=== PATIENT | male | born 1995 ===

== ENCOUNTER 2019-11-02 09:59 | Emergency (ER) | payer BC ==
[2019-11-02 10:15] VITALS: BP 127/50; PULSE 86; TEMP 98.4; BMI 30.5
[2019-11-02] MEDS ORDERED: IBUPROFEN 600 MG TABLET (FP) PO ONE ×2 (11:05→11:09)
--- NOTE | 2019-11-02 12:07 | PDOC ---
History of Present Illness - General Chief Complaint: Sore Throat Stated Complaint: SORE THROAT Time Seen by Provider: 11/02/19 10:49 History Source: Patient Exam Limitations: No Limitations Past History - Travel Traveled outside of the country in the last 30 days: No Close contact w/someone who was outside of country & ill: No - Past Medical History Allergies/Adverse Reactions: Allergies Allergy/AdvReac Type Severity Reaction Status Date / Time No Known Allergies Allergy Verified 11/02/19 10:04 Home Medications: Ambulatory Orders Amoxicillin - [Amoxicillin 500mg Capsule -] 500 mg PO BID #14 capsule 11/02/19 Amoxicillin - [Amoxicillin 500mg Capsule -] 500 mg PO BID #14 capsule 11/02/19 Ibuprofen 600 mg PO Q6H #30 tablet 11/02/19 Ibuprofen 600 mg PO Q6H #30 tablet 11/02/19 COPD: No - Psycho Social/Smoking Cessation Hx Smoking History: Never smoked Information on smoking cessation initiated: No Hx Alcohol Use: No Drug/Substance Use Hx: No Review of Systems - Review of Systems Able to Perform ROS?: Yes Comments:: 11/02/19 14:44 CONSTITUTIONAL: Absent: fever, chills, diaphoresis, generalized weakness, malaise, loss of appetite HEENT: Present: Sore throat, difficulty swallowing. Absent: rhinorrhea, nasal congestion, throat swelling, mouth swelling, ear pain, eye pain, visual Changes CARDIOVASCULAR: Absent: chest pain, loss of consciousness, palpitations, irregular heart rate, peripheral edema RESPIRATORY: Absent: cough, shortness of breath, dyspnea with exertion, orthopnea, wheezing, stridor, hemoptysis SKIN: Absent: rash, itching, pallor NEUROLOGIC: Absent: headache, focal weakness or paresthesias, dizziness, unsteady gait, seizure, mental status changes, bladder or bowel incontinence PSYCHIATRIC: Absent: anxiety, depression, suicidal or homicidal ideation, hallucinations. Is the patient limited [place] proficient: No *Physical Exam - Vital Signs Last Vital Signs Temp Pulse Resp BP Pulse Ox 98.4 F 86 17 127/50 L 100 11/02/19 10:05 11/02/19 10:05 11/02/19 10:05 11/02/19 10:05 11/02/19 10:05 - Physical Exam 11/02/19 14:44 GENERAL: The patient is awake, alert, and fully oriented, in no acute distress. HEAD: Normal with no signs of trauma. EYES: Pupils equal, round and reactive to light, extraocular movements intact, sclera anicteric, conjunctiva clear. HEENT: No nasal congestion or rhinorrhea. No sinus Tenderness. Mucous membranes are moist. (+) tonsillar erythema, exudate and edema. Uvula is midline. No TM bulging, dullness or erythema EXTREMITIES: Normal range of motion, no edema. NEUROLOGICAL: Normal speech, normal gait. PSYCH: Normal mood, normal affect. SKIN: Warm, Dry, normal turgor, no rashes or lesions noted. ED Treatment Course - Medications Given in the ED: ED Medications Discontinued Medications Generic Name Dose Route Start Last Admin Trade Name Freq PRN Reason Stop Dose Admin Ibuprofen 600 mg 11/02/19 11:05 11/02/19 11:08 Motrin - PO 11/02/19 11:06 600 mg ONCE ONE Administration Medical Decision Making - Medical Decision Making 11/02/19 14:45 The patient is a 24-year-old male with no past medical history who presents to the ER today for 2 days of sore throat. He states that he has difficulty swallowing however he is able to swallow his own secretions. He notes that the pain got worse this morning and he had white patches in the back of his throat so he came to the ER for evaluation. Denies fevers, chills, cough, nausea, vomiting or diarrhea. A/P: Strep pharyngitis On exam throat is erythematous with exudate and 2+ edema of the tonsils. Uvula is midline. Pt able to swallow own secretions Rapid strep is positive Discharge home with antibiotics and primary care follow-up I discussed the physical exam findings, ancillary test results and final diagnoses with the patient. I answered all of the patient's questions. The patient was satisfied with the care received and felt comfortable with the discharge plan and treatment plan. The Patient agrees to follow up with the primary care physician/specialist within 24-72 hours. Return precautions were given. Discharge - Discharge Information Problems reviewed: Yes Clinical Impression/Diagnosis: Strep pharyngitis Condition: Stable Disposition: HOME - Admission No - Additional Discharge Information Prescriptions: Amoxicillin - [Amoxicillin 500mg Capsule -] 500 mg PO BID #14 capsule Amoxicillin - [Amoxicillin 500mg Capsule -] 500 mg PO BID #14 capsule Ibuprofen 600 mg PO Q6H #30 tablet Ibuprofen 600 mg PO Q6H #30 tablet - Follow up/Referral Referrals: Zak Sauceda MD [Staff Physician] - - Patient Discharge Instructions Patient Printed Discharge Instructions: DI for Strep Throat Additional Instructions: You have strep throat. This is a bacterial infection. Please take the amoxicillin 500 mg twice a day for one week. Please finish the prescription even if you feel better. You may take Motrin 800 mg every 8 hours as needed for pain or fever. Warm water gargles and cough drops and just may also help her symptoms. Please throw way your toothbrush 3 days into treatment to prevent reinfection. Please follow up with your primary care doctor next week. Return to emergency department if you have worsening pain, difficulty swallowing , changes in your voice, lightheadedness, dizziness, or any changes in your symptoms. - Post Discharge Activity Work/Back to School Note: Back to Work
== END 2019-11-02 12:11 | disposition home or self-care (01) ==
LOC: JER 09:59 → JERFT 09:59
DX: J02.0 Streptococcal pharyngitis (principal)
CPT/HCPCS: 87880; 99281-25